=== PATIENT | female | born 1965 | race Caucasian/White ===

== ENCOUNTER 2020-09-04 18:13 | Outpatient (REF) | payer BC, SELFPAY ==
[2020-09-04 21:11] LABS: ALT 45 U/L (14-59); AST 83 U/L (15-37); Albumin 4.1 g/dL (3.4-5.0); Alkaline Phosphatase 76 U/L (46-116); Anion Gap 17.1 mmol/L (3-11); BUN 3 mg/dL (7-18); Bilirubin, Total 0.4 mg/dL (0.2-1.0); CO2 21.9 mmol/L (21.0-32.0); CREATININE 0.8 mg/dL (0.55-1.02); Calculated LDL 75 mg/dL (<100); Chloride 92 mmol/L (98-107); Cholesterol 202 mg/dL (<200); Glucose 101 mg/dL (74-106); HDL Cholesterol 102 mg/dL (40-60); Potassium 3.7 mmol/L (3.5-5.1); Sodium 131 mmol/L (136-145); Total Protein 7.7 g/dL (6.4-8.2); Triglyceride 129 mg/dL (<150)
[2020-09-08 10:28] LABS: Hepatitis C Ab w Rflx HCV PCR Negative (Negative)
[2020-09-08 14:15] LABS: HIV-1/2 Ag & Ab Screen Negative (Negative)
== END 2020-09-04 18:14 | disposition home or self-care (01) ==
LOC: NCHCN 18:13
PROVIDERS: PCP Nurse Practitioner Family; Visit Provider Nurse Practitioner Family
DX: Z00.00 Encounter for general adult medical examination without abnormal findings (principal)
CPT/HCPCS: 80053; 80061; 86803; 87389